=== PATIENT | male | born 1980 | race Caucasian/White ===

== ENCOUNTER 2020-06-17 18:58 | Emergency (ER) | payer OTHER ==
[~2020-06-17] VITALS: Ht 177.8 cm; Wt 72.6 kg
[2020-06-17 20:07] LABS: URINE BILIRUBIN NEGATIVE (Negative); URINE BLOOD NEGATIVE (Negative); URINE CLARITY CLEAR; URINE COLOR YELLOW; URINE GLUCOSE-RANDOM* NEGATIVE (Negative); URINE KETONES NEGATIVE (Negative); URINE LEUKOCYTES-REFLEX NEGATIVE (Negative); URINE NITRITE-REFLEX NEGATIVE (Negative); URINE PROTEIN (DIPSTICK) NEGATIVE (Negative); URINE SPECIFIC GRAVITY 1.025 (1.005-1.035); URINE UROBILINOGEN 0.2 E.U./dl (0.2-1.0)
[2020-06-17] MEDS ORDERED: FINASTERIDE5 MG PO (20:28)
[2020-06-17] MEDS ORDERED: CELEXA 20 MG TA20 MG PO (20:28)
[2020-06-17] MEDS ORDERED: LORAZEPAM 1 MG T1 MG PO (20:28)
[2020-06-17 21:08] LABS: AMP/METHAMP Negative (Negative); BARBITURATES Negative (Negative); BENZODIAZEPINES Negative (Negative); COCAINE Negative (Negative); METHADONE Negative (Negative); OPIATES Negative (Negative); PCP Negative (Negative)
[2020-06-18 00:08] VITALS: BP 103/60
== END 2020-06-18 00:10 | disposition home or self-care (01) ==
LOC: ER 18:58
PROVIDERS: Emergency Medicine
DX: R25.3 Fasciculation (principal); R53.1 Weakness; R47.81 Slurred speech; Z79.899 Other long term (current) drug therapy

== ENCOUNTER 2021-03-11 18:15 | Inpatient (IN) | payer OTHER ==
[~2021-03-11] VITALS: Ht 175.3 cm; Wt 70.3 kg
--- NOTE | ~2021-03-11 | EMS ---
[address] [address] EMS Patient Care Report Name: JOSE RAYMOND Room #: REG LISA Quintanilla#: [id number] Admission: 03/11/21 Attend Phys: Discharge: Date of : 82 Report #: [id number] THIS REPORT FOR: //name// Report Transmitted: 03/11/2021 20:01 EMS Care Summary [facility] MED-ACT Incident -[id number] @ 03/11/2021 17:42 Incident Location [address] [place] [address] Patient JOSE RAYMOND Male, 41 Years 1980 Patient Address [address] [place] [address] Patient History Amyotrophic lateral sclerosis (ALS), Patient Allergies No known allergies, Patient Medications None Reported, Chief Complaint Constipation Disposition Transported No Lights/[place] Dispatch Reason Sick Person Transported To [facility] Narrative [id number] dispatched non emergent to C3 sick ill subject. Upon arrival pt found sitting in chair in no obvious distress. Pt states that he got a G-Tube placed SaturdayMarch 07 and since Saturday he has no had a bowel movement. Pt states he has tries one enema without success.. Pt states he has lower abdominal pain [address] [address] EMS Patient Care Report Name: JOSE RAYMOND Room #: REG LISA Quintanilla#: [id number] Admission: 03/11/21 Attend Phys: Discharge: Date of : 82 Report #: [id number] that is constant and dull. Pt states standing makes the pain feel better. Pt denies any nausea or vomiting. Pt denies any radiation of pain. Pt assessment performed. Vitals assessed including temp. Pt assisted to cot. Pt moved to ambulance. IV established. Biocom to [place] performed. Pt report given to RN. Pt care transferred to [facility] without incident. [id number] cleared call. Initial Vitals @18:06P: 76,R: 16,BP: 131/82,SpO2: 98, @18:01P: 71,R: 16,BP: 133/94,Pain: 8/10,GCS: 15,Temp: 97.8F,SpO2: 98,Revised Trauma: 12, Assessments @17:56MENTAL:Person Oriented,Time Oriented,Place Oriented,Event Oriented,SKIN:HEENT:Eyes: Left Pupil: 4-mm,Eyes: Right Pupil: 4-mm,LUNG SOUNDS:Left Lower: Tenderness,Right Lower: Tenderness,General: No Abnormalities,ABDOMEN:Left Lower: Tenderness,Right Lower: Tenderness,General: No Abnormalities,PELVIS//GI:EXTREMITIES:Left Arm: No Abnormalities,Right Arm: No Abnormalities,Left Leg: No Abnormalities,Right Leg: No Abnormalities,PULSE:Radial: 2+ Normal,NEURO:No Abnormalities, Impression Abdominal Pain Procedures @18:03Saline Lock 10cc (20 ga) Site: Antecubital-LeftResponse: UnchangedSucceeded@18:15Surgical Mask on PatientResponse: Unchanged Timeline 17:40,Call Received 17:40,Psap Call 17:42,Dispatched 17:43,En Route 17:54,On Scene 17:55,At Patient 18:01,BP: 133/94 M,PULSE: 71,RR: 16 R,SPO2: 98 Ox,ETCO2: ,BG: ,PAIN: 8,GCS: 15, 18:02,Depart Scene 18:03,Saline Lock 10cc 20 ga Site: Antecubital-Left,Response: UnchangedSucceeded, 18:06,BP: 131/82 M,PULSE: 76,RR: 16 R,SPO2: 98 Ox,ETCO2: ,BG: ,PAIN: ,GCS: , 18:15,Surgical Mask on Patient,Response: Unchanged 18:15,At Destination 18:31,Call Closed Disclaimer [address] [address] EMS Patient Care Report Name: JOSE RAYMOND MARILUZ Room #: REG Dwight#: [id number] Admission: 03/11/21 Attend Phys: Discharge: Date of : 82 Report #: [id number] v1.1 Copyright 2020 [employer] This EMS Care Summary contains data elements from the applicable legal record (which may be displayed differently). It is designed to provide pertinent information for the following purposes: continuity of care, clinical quality, and state data reporting. The complete legal record is available to ED staff and administrators of the receiving hospital in [employer] Patient Tracker. All data is provided "as is."
[~2021-03-11 18:15] MED LIST: CELEXA 20 MG TA20 MG PO; FINASTERIDE5 MG PO; LORAZEPAM 1 MG T1 MG PO
[2021-03-11 18:16] VITALS: BP 134/91
[2021-03-11] MEDS ORDERED: BUPROPION HCL100 MG PO (18:23)
[2021-03-11] MEDS ORDERED: BACLOFEN5 MG PO (18:23)
[2021-03-11] MEDS ORDERED: NUEDEXTA 20-101 EACH PO (18:24)
[2021-03-11] MEDS ORDERED: BENTYL10 MG/1 ML PO (18:25)
[2021-03-11] MEDS ORDERED: FLONASE 0.05%50 MCG INH (18:26)
[2021-03-11] MEDS ORDERED: RILUTEK50 MG PO (18:26)
[2021-03-11 19:49] LABS: URINE BILIRUBIN NEGATIVE (Negative); URINE BLOOD NEGATIVE (Negative); URINE CLARITY CLOUDY; URINE COLOR YELLOW; URINE GLUCOSE-RANDOM* NEGATIVE (Negative); URINE KETONES NEGATIVE (Negative); URINE LEUKOCYTES-REFLEX NEGATIVE (Negative); URINE NITRITE-REFLEX NEGATIVE (Negative); URINE PROTEIN (DIPSTICK) NEGATIVE (Negative); URINE UROBILINOGEN 0.2 E.U./dl (0.2-1.0)
[2021-03-11 20:52] LABS: ABSOLUTE NEUTROPHILS 10.3 thou/uL (1.4-8.2); BASOPHILS 0.3 % (0.0-2.0); EOSINOPHILS 0.8 % (0.0-3.0); HEMATOCRIT 41.9 % (42.0-52.0); LYMPHOCYTES 6.3 % (24.0-44.0); MCH 30.9 pg (26.0-34.0); MCHC 33.3 g/dL (28.0-37.0); MCV 92.6 fL (80.0-100.0); MONOCYTES 4.3 % (1.0-8.0); PLATELET COUNT 199 thou/uL (150-400); POLYS 88.3 % (36.0-66.0); RBC 4.53 mil/uL (4.50-6.00); RDW 12.4 % (10.5-14.5); WBC 11.7 thou/uL (4.0-11.0)
[2021-03-11 20:57] LABS: CALCIUM 8.2 mg/dL (8.5-10.1); CREATININE 1.1 mg/dL (0.7-1.3); POTASSIUM 3.7 mmol/L (3.5-5.1)
[2021-03-11 21:36] VITALS: BP 134/91
[2021-03-11 21:37] VITALS: BP 134/91
[2021-03-11 21:38] VITALS: BP 134/91
[2021-03-11 22:38] VITALS: BP 141/87
[2021-03-11 22:46] VITALS: BP 119/72
--- NOTE | 2021-03-12 05:28 | NUR ---
PT WAS ADMITTED TO THE UNIT FROM THE ER IN A STABLE CONDITION.ADMSSION ASSESSMENT,EDUCATION AND HX COMPLEETD.MED RECOINCILATION NOT DONE,PT UNABLE TO REMEMBER MEDS TAKEN AT HOME.ORDER NOTED FOR MAG CITRATE,EFFECTIVE.PT HAD A LARGE BM.PT UNSATBLE ON HIS FEET DUE TO HX OF ALS.PEG TUBE NOTED TO HIS L ABD.URINAL AT BEDSIDE.PT ABLE TO MAKE HIS NEEDS KNOWN.CALL LIGHT WITHIN REACH.
[2021-03-12 08:00] VITALS: BP 102/56
[2021-03-12] MEDS ORDERED: FLOMAX0.4 MG PO (10:43)
[2021-03-12] MEDS ORDERED: MIRALAX119 GM PO (10:44)
[2021-03-12] MEDS ORDERED: PEDIA-LAX50 MG/15 M PER TUBE (10:44)
[2021-03-12 13:09] VITALS: BP 119/72
--- NOTE | 2021-03-12 14:00 | NUR ---
PT ASSESSED AT START OF SHIFT. ALERT AND PLEASANT. HAVING LARGE SOFT BM'S W/ LAST ONE LOOSE. FEELS MORE COMFORTABLE. TOOL LIQUID COLACE AND FELT LIKE SOME WENT DOWN WRONG WAY AND HE WANTED TO COUGH HARD BUT COULDN'T. ALSO, STATED HE WANTED TO BURP. NOTIFIED DR. PHILLIP AND DARIEL TREATMENT ORDERED ONETIME WHICH HELPED. ALSO, PT AMBULATED THE HALLS W/ NURSE AND HIS FATHER HELPING AND HE WAS ABLE TO BELCH WHICH MADE HE FEEL MUCH BETTER. PT ATE [employer] FOR LUNCH SITTING UP IN THE CHAIR AND WAS DOING WELL. TOOK SHOWER W/ HELP AND DISCHARGED TO HOME AT THIS TIME W/ ALL BELONGINGS.
--- NOTE | 2021-03-13 07:25 | NUR ---
ORDERS FOR EVAL AND TREAT HOWEVER Pt DISCHARGED FROM HOSPITAL PRIOR TO BEING SEEN
== END 2021-03-12 14:07 | disposition home or self-care (01) | DRG 392 ==
LOC: ER 18:15 → EROBS 21:02 → 4S 22:34
PROVIDERS: Nurse Practitioner; ADMIT Hospitalist; ATTEND Hospitalist
DX: K59.00 Constipation, unspecified (principal); G12.21 Amyotrophic lateral sclerosis; R11.0 Nausea; R53.1 Weakness; R33.9 Retention of urine, unspecified; Z79.899 Other long term (current) drug therapy
CPT/HCPCS: 10195